=== PATIENT | female | born 2000 | race Two or more races ===

== ENCOUNTER 2021-11-08 15:16 | Emergency (ER) | payer OTHER ==
[~2021-11-08] VITALS: Ht 154.9 cm; Wt 83.5 kg
[2021-11-08 15:29] VITALS: BP 133/88
[2021-11-08] MEDS ORDERED: IBUPROFEN 400 MG TABLET ONE (16:35)
[2021-11-08] MEDS: IBUPROFEN 400 MG TABLET PO ONE (16:38)
== END 2021-11-08 18:21 | disposition home or self-care (01) ==
LOC: EDSEX 15:25 → ER 15:25
DX: S80.11XA Contusion of right lower leg, initial encounter (principal); M54.2 Cervicalgia; Z86.2 Personal history of diseases of the blood and blood-forming organs and certain disorders involving the immune mechanism; Z60.2 Problems related to living alone; V89.2XXA Person injured in unspecified motor-vehicle accident, traffic, initial encounter; Y93.89 Activity, other specified; Y92.89 Other specified places as the place of occurrence of the external cause; Y99.8 Other external cause status
CPT/HCPCS: 72040-TC; 73590-TC